=== PATIENT | female | born 1960 | race Two or more races ===

== ENCOUNTER 2020-05-29 09:44 | Emergency (ER) | payer OTHER ==
[2020-05-29 09:53] VITALS: BP 166/93; PULSE 73; BMI 33.0
--- NOTE | 2020-05-29 12:01 | PDOC ---
History of Present Illness - General Chief Complaint: Pain, Acute Stated Complaint: ABD PAIN/BACK PAIN Time Seen by Provider: 05/29/20 11:19 History Source: Patient Exam Limitations: Clinical Condition - History of Present Illness Initial Comments: 05/29/20 11:56 Patient with past medical history of hypertension and [id number] diabetes presented with complaint of one-week history of suprapubic abdominal pain and lower back pain radiating to bilateral lower extremities with swelling to bilateral calf muscle. Patient reported cramping pain radiated from the thigh muscle all the way down to the leg. Patient was seen by PCP for symptoms and referred for outpatient MRI of lumbar spine. Patient also report intermittent dysuria and urinary frequency. Denies nausea, vomiting, diarrhea, constipation. Reported last bowel movement this morning which was soft. Denies fever, shortness of breath, chest pain, palpitation. Patient has not taken anything for symptoms. Is this a multiple visit Asthma Patient?: No Timing/Duration: 1 week Past History - Medical History Allergies/Adverse Reactions: Allergies Allergy/AdvReac Type Severity Reaction Status Date / Time No Known Allergies Allergy Verified 05/29/20 12:02 Home Medications: Ambulatory Orders Ciprofloxacin [Cipro (Restricted To Id)] 500 mg PO Q12H 5 Days #10 tablet 05/29/20 Methocarbamol [Robaxin -] 500 mg PO BID #14 tablet 05/29/20 Methylprednisolone [Medrol Dose Balbir] 4 mg PO ASDIR #21 tablet 05/29/20 Phenazopyridine HCl [Pyridium -] 100 mg PO PC #6 tablet 05/29/20 - Psycho-Social/Smoking History Smoking History: Never smoked - Substance Abuse Hx (Audit-C & DAST Scrn) How often the patient has a drink containing alcohol: Never Score: In Men: 4 or > Positive; In Women: 3 or > Positive: 0 Screen Result (Pos requires Nsg. Audit-10AR): Negative In the last yr the pt used illegal drug/Rx for NonMed reason: No Score: Yes response is considered Positive: 0 Screen Result (Positive result requires Nsg. DAST-10): Negative Review of Systems - Review of Systems Able to Perform ROS?: Yes Is the patient limited Yoruba proficient: No Constitutional: No: Chills, Fever, Malaise HEENTM: No: Symptoms Reported, See HPI, Eye Pain, Blurred Vision, Tearing, Recent change in vision, Double Vision, Cataracts, Ear Pain, Ocular Prothesis, Ear Discharge, Nose Pain, Nose Congestion, Tinnitus, Nose Bleeding, Hearing Loss, Throat Pain, Throat Swelling, Mouth Pain, Dental Problems, Difficulty Swallowing, Mouth Swelling, Other Respiratory: No: Symptoms reported, See HPI, Cough, Orthopnea, Shortness of Breath, SOB with Exertion, SOB at Rest, Stridor, Wheezing, Productive cough, Hemoptysis, Other Cardiac (ROS): No: Symptoms Reported, See HPI, Chest Pain, Edema, Irregular Heart Rate, Lightheadedness, Palpitations, Syncope, Chest Tightness, Other ABD/GI: Yes: Symptoms Reported, See HPI, Abdominal cramping (lower abdominal cr amping). No: Blood Streaked Bowels, Constipated, Diarrhea, Nausea, Vomiting : Yes: Symptoms Reported, See HPI, Dysuria (intermittent), Frequency (intermittent). No: Discharge, Hematuria, Incontinence, Urgency Musculoskeletal: Yes: Symptoms Reported, See HPI, Back Pain. No: Muscle Weakness Integumentary: No: Symptoms Reported, Change in Color, Flushing, Rash All Other Systems: Reviewed and Negative *Physical Exam - Vital Signs Last Vital Signs Temp Pulse Resp BP Pulse Ox 73 16 166/93 99 05/29/20 09:51 05/29/20 09:51 05/29/20 09:51 05/29/20 09:51 - Physical Exam 05/29/20 12:03 GENERAL: Well developed, well nourished. Awake and alert. No acute distress. HEENT: Normocephalic, atraumatic. PERRLA, EOMI. No conjunctival pallor. Sclera are non- icteric. Moist mucous membranes. Oropharynx is clear. NECK: Supple. Full ROM. No JVD. Carotid pulses 2+ and symmetric, without bruits. No thyromegaly. No lymphadenopathy. CARDIOVASCULAR: Regular rate and rhythm. No murmurs, rubs, or gallops. Distal pulses are 2+ and symmetric. PULMONARY: No evidence of respiratory distress. Lungs clear to auscultation bilaterally. No wheezing, rales or rhonchi. ABDOMINAL: Soft. Mild suprapubic tenderness . Non-distended. No rebound or guarding. No organomegaly. Normoactive bowel sounds. MUSCULOSKELETAL Normal range of motion at all joints. No bony deformities or tenderness. No CVA tenderness. EXTREMITIES: No cyanosis. No clubbing. No edema. Moderate subjective bilateral calf t enderness with visible muscle tightness to lateral aspect of bilateral lower leg. Negative Homans sign. SKIN: Warm and dry. Normal capillary refill. No rashes. No jaundice. NEUROLOGICAL: Alert, awake, appropriate. Cranial nerves 2-12 intact. No deficits to light touch in upper extremities and lower extremities. No motor deficits in the in face, upper extremities and lower extremities. Normal speech. Gait is normal without ataxia. Negative straight leg raise to bilateral lower extremities PSYCHIATRIC: Cooperative. Good eye contact. Appropriate mood and affect. General Appearance: Yes: Nourished, Appropriately Dressed. No: Apparent Distress ED Treatment Course - LABORATORY CBC & Chemistry Diagram: 05/29/20 12:02 05/29/20 11:59 - RADIOLOGY Radiology Studies Ordered: Category Date Time Status DUPLEX VASCUL US-2LEGS [US] Stat Ultrasound 05/29/20 11:52 Ordered Medical Decision Making - Medical Decision Making 05/29/20 11:58 Patient with past medical history of hypertension and [id number] diabetes presented with complaint of one-week history of suprapubic abdominal pa in and lower back pain radiating to bilateral lower extremities with swelling to bilateral calf muscle. Patient reported cramping pain radiated from the thigh muscle all the way down to the leg. Patient was seen by PCP for symptoms and referred for outpatient MRI of lumbar spine. Patient also report intermittent dysuria and urinary frequency. Denies nausea, vomiting, diarrhea, constipation. Reported last bowel movement this morning which was soft. Denies fever, shortness of breath, chest pain, palpitation. Patient has not taken anything for symptoms. Exam significant for mild suprapubic tenderness without guarding or rebound otherwise no other abdominal tenderness. subjective tenderness to bilateral calf muscle with increased tenderness to left greater than right. Visible muscle tightness to lateral aspect of bilateral calf muscle. No peripheral edema. Negative Homans sign. Patient in no acute distress. Negative CVA tenderness Patient symptoms likely musculoskeletal pain to bilateral lower extremities as visible muscle tightness on exam versus less likely DVT. Patient abdominal pain likely cystitis. Basic blood work CBC and chemistry lab ordered. UA and urine culture ordered to rule out UTI. Duplex ultrasound to bilateral lower extremity ordered to rule out DVT. Patient in no acute distress to give pain meds at this point. Treat based on lab and imaging results 05/29/20 14:07 CBC and chemistry lab unremarkable. UA shows leukocytosis with WBCs. Patient s uprapubic pain likely cystitis. Patient pending duplex ultrasound to rule out DVT 05/29/20 15:12 Duplex ultrasound bilateral lower extremity shows no DVT. Patient symptoms likely musculoskeletal pain and will be treated on Medrol Balbir for inflammatory effect for muscle cramps and possible sciatica and Robaxin for muscle relaxer with PCP follow-up. Patient will still be discharged on Cipro antibiotics for bacteria in UA and Pyridium. Patient advised to increase fluid intake and follow-up with PCP Discharge - Discharge Information Problems reviewed: Yes Clinical Impression/Diagnosis: Acute cystitis without hematuria, Bilateral leg cramps Lumbago with sciatica, unspecified side Qualifiers: Chronicity: acute Back pain laterality: bilateral Sciatica laterality: bilateral sciatica Qualified Code(s): M54.42 - Lumbago with sciatica, left side Condition: Stable Disposition: HOME - Admission No - Additional Discharge Information Prescriptions: Ciprofloxacin [Cipro (Restricted To Id)] 500 mg PO Q12H 5 Days #10 tablet Methylprednisolone [Medrol Dose Balbir] 4 mg PO ASDIR #21 tablet Phenazopyridine HCl [Pyridium -] 100 mg PO PC #6 tablet Methocarbamol [Robaxin -] 500 mg PO BID #14 tablet - Follow up/Referral Referrals: Alfonso Esquivel, VALENTE [Primary Care Provider] - - Patient Discharge Instructions Patient Printed Discharge Instructions: DI for Urinary Tract Infection (UTI), DI for Nocturnal Leg Cramps Additional Instructions: Your ultrasound shows no blood clot. Your leg pain is likely from muscle pain. Take prescribed medication as prescribed for pain. Your urine shows bacteria which you are being treated with antibiotics. Take prescribed medication and increase fluid intake. Follow-up with your primary care Galvan ecografa no muestra ningn cogulo de willis. Es probable que el dolor en la pierna se deba a un dolor muscular. [place] los medicamentos recetados segn lo prescrito para el dolor. Galvan orina muestra bacterias que est siendo tratado con antibiticos. [place] los medicamentos recetados y aumente la ingesta de lquidos. Seguimiento con galvan atencin primaria Print Language: PU[place] RICAN - Post Discharge Activity
[2020-05-29 12:28] LABS: BASO % 1.5 % (0-2.0); EOS % 1.4 % (0-4.5); HEMATOCRIT 39.2 % (32.4-45.2); HEMOGLOBIN 13.2 GM/dL (10.7-15.3); LYMPH % 50.7 % (8-40); MCH 26.8 pg (25.7-33.7); MCHC 33.8 g/dl (32.0-36.0); MEAN CELL VOLUME 79.4 fl (80-96); MONO % 8.2 % (3.8-10.2); NEUT % 38.2 % (42.8-82.8); PLATELET COUNT 221 K/MM3 (134-434); RBC 4.93 M/mm3 (3.60-5.2); RDW 15.2 % (11.6-15.6); WHITE BLOOD COUNT 7.3 K/mm3 (4.0-10.0)
[2020-05-29 12:59] LABS: PH,URINE 5.5 (5.0-8.0); URINE APPEARANCE Clear; URINE BILIRUBIN Negative (NEGATIVE); URINE COLOR Yellow; URINE GLUCOSE (UA) Negative (NEGATIVE); URINE KETONE Trace (NEGATIVE); URINE LEUK ESTERASE Trace (NEGATIVE); URINE NITRITE Negative (NEGATIVE); URINE PROTEIN Negative (NEGATIVE); URINE UROBILINOGEN 0.2 mg/dL (0.2-1.0)
[2020-05-29] MEDS ORDERED: KETOROLAC TROMETHAMINE 30 MG/1 ML VIAL IVPUSH ONE (13:00)
[2020-05-29 13:18] LABS: EPI CELLS 19.9 /uL (0-25.1); HYALINE CASTS 1.28 /uL (0-3.1); URINE BACTERIA 231.3 /uL (0-1359); URINE RBC 10.2 /uL (0-23.9); URINE WBC 28.3 /uL (0-25.8)
[2020-05-29 13:40] LABS: BILIRUBIN,TOTAL 0.2 mg/dL (0.2-1); BLOOD UREA NITROGEN 13.8 mg/dL (7-18); CALCIUM 9.4 mg/dL (8.5-10.1); CREATININE 0.7 mg/dL (0.55-1.3); TOT PROT 8.6 g/dl (6.4-8.2)
[2020-05-29] MEDS ORDERED: KETOROLAC TROMETHAMINE 30 MG/1 ML VIAL ONE (13:49)
== END 2020-05-29 15:16 | disposition home or self-care (01) ==
LOC: JER 09:44
PROC: 3E0333Z Introduction of Anti-inflammatory into Peripheral Vein, Percutaneous Approach (ICD-10-PCS; principal; 2020-05-29)
DX: M54.42 Lumbago with sciatica, left side (principal); N30.00 Acute cystitis without hematuria
CPT/HCPCS: 36415; 80053; 81003; 83690; 85025; 87077; 87086; 93970-TC; 99284-25